=== PATIENT | male | born 1975 | race Caucasian/White ===

== ENCOUNTER 2023-08-06 16:14 | Emergency (ER) | payer SELFPAY ==
[~2023-08-06] VITALS: Ht 170.2 cm; Wt 63.0 kg
[2023-08-06 16:58] VITALS: BP 109/69; PULSE 90; RESP 20; TEMP 98.8; O2SAT 99
[2023-08-06] MEDS ORDERED: IBUPROFEN 600 MG TAB PO ONE (17:40)
[2023-08-06] MEDS ORDERED: HYDROcodone/APAP 5/325 MG 1 TAB TAB PO ONE (17:55)
[2023-08-06] MEDS ORDERED: cefTRIAXone 1,000 MG in LIDOCAINE MPF 1% 2.1 ML IM ONE (17:55)
[2023-08-06] MEDS ORDERED: ACET-8905 PO (18:20)
[2023-08-06] MEDS ORDERED: SULF-59 PO (18:20)
[2023-08-06] MEDS ORDERED: IBUP-2213 PO (18:20)
[2023-08-06] MEDS ORDERED: CEPH500C16 PO (18:20)
[2023-08-06] MEDS ORDERED: cefTRIAXone 1,000 MG VIAL ONE (18:35)
[2023-08-06] MEDS ORDERED: LIDOCAINE MPF 1% 5 ML ONE (18:36)
== END 2023-08-06 18:58 | disposition home or self-care (01) ==
LOC: MED 16:14
DX: L03.317 Cellulitis of buttock (principal); Z79.899 Other long term (current) drug therapy; Z79.1 Long term (current) use of non-steroidal anti-inflammatories (NSAID); Z79.2 Long term (current) use of antibiotics
CPT/HCPCS: 96372; 99284; J0696; J2001

== ENCOUNTER 2023-08-09 19:36 | Emergency (ER) | payer MEDICAID ==
[~2023-08-09] VITALS: Ht 170.2 cm; Wt 61.2 kg
[~2023-08-09 19:36] MED LIST: CEPH500C16 PO; IBUP-2213 PO; SULF-59 PO
[2023-08-09 19:44] VITALS: BP 119/71; PULSE 96; RESP 16; TEMP 98.3; O2SAT 100
== END 2023-08-10 00:20 | disposition left against medical advice (07) ==
LOC: MED 19:36
DX: L02.31 Cutaneous abscess of buttock (principal); Z53.21 Procedure and treatment not carried out due to patient leaving prior to being seen by health care provider
CPT/HCPCS: 99281

== ENCOUNTER 2023-08-10 09:37 | Emergency (ER) | payer MEDICAID ==
[~2023-08-10] VITALS: Ht 165.1 cm; Wt 59.0 kg
[2023-08-10 10:09] VITALS: BP 111/67; PULSE 89; RESP 18; TEMP 97; O2SAT 98
[2023-08-10 11:02] VITALS: BP 111/67; PULSE 89; RESP 18; TEMP 97; O2SAT 98
== END 2023-08-10 11:04 | disposition home or self-care (01) ==
LOC: MED 09:37
DX: L02.31 Cutaneous abscess of buttock (principal); Z79.899 Other long term (current) drug therapy
CPT/HCPCS: 99282

== ENCOUNTER 2023-12-03 23:45 | Emergency (ER) | payer SELFPAY ==
[~2023-12-03] VITALS: Ht 170.2 cm; Wt 62.6 kg
[2023-12-04 00:28] VITALS: BP 131/72; PULSE 88; RESP 16; TEMP 98.2; O2SAT 97
[2023-12-04] MEDS ORDERED: ACET-10509 PO (01:22)
[2023-12-04] MEDS ORDERED: CEPH-588 PO (01:22)
[2023-12-04] MEDS ORDERED: cefTRIAXone 1,000 MG VIAL ONE (01:22)
[2023-12-04] MEDS ORDERED: LIDOCAINE MPF 1% 5 ML ONE (01:22)
[2023-12-04] MEDS ORDERED: SULF-59 PO (01:22)
[2023-12-04] MEDS: cefTRIAXone 1,000 MG in LIDOCAINE MPF 1% 2.1 ML IM ONE (01:25)
[2023-12-04 01:30] VITALS: BP 131/72; PULSE 88; RESP 16; TEMP 98.2; O2SAT 97
== END 2023-12-04 01:30 | disposition home or self-care (01) ==
LOC: MED 23:45
DX: L03.115 Cellulitis of right lower limb (principal); Z79.899 Other long term (current) drug therapy
CPT/HCPCS: 96372; 99283; J0696; J2001

== ENCOUNTER 2023-12-04 19:16 | Emergency (ER) | payer SELFPAY ==
[~2023-12-04] VITALS: Ht 170.2 cm; Wt 67.1 kg
[~2023-12-04 19:16] MED LIST changes: +ACET-10509 PO; +CEPH-588 PO
[2023-12-04 19:55] VITALS: BP 104/70; PULSE 88; RESP 18; TEMP 98.9; O2SAT 99
== END 2023-12-04 22:44 | disposition left against medical advice (07) ==
LOC: MED 19:16
DX: L03.115 Cellulitis of right lower limb (principal); Z53.21 Procedure and treatment not carried out due to patient leaving prior to being seen by health care provider
CPT/HCPCS: 99281

== ENCOUNTER 2024-06-28 11:33 | Emergency (ER) | payer MEDICAID ==
[~2024-06-28] VITALS: Ht 170.2 cm; Wt 59.0 kg
[~2024-06-28 11:33] MED LIST changes: -ACET-10509 PO; +ACET500T99 PO
[2024-06-28 11:39] VITALS: BP 109/85; PULSE 91; RESP 16; TEMP 97.2; O2SAT 99
[2024-06-28 11:55] VITALS: O2SAT 99
[2024-06-28 13:13] LABS: BASOPHILS % (AUTO) 0.4 % (0.0-2.0); EOSINOPHILS # (AUTO) 0.3 K/uL (0-0.4); EOSINOPHILS % (AUTO) 3.2 % (0.0-4.0); HEMOGLOBIN 13.4 g/dL (12.0-18.0); LYMPHOCYTES # (AUTO) 3.1 K/uL (2.0-11.5); LYMPHOCYTES % (AUTO) 33.9 % (20.5-51.1); MEAN CORPUSCULAR HEMOGLOBIN 29 pg (27-31); MEAN CORPUSCULAR HGB CONC 33 g/dL (33-37); MEAN CORPUSCULAR VOLUME 85.8 fL (80-94); MONOCYTES # (AUTO) 0.6 K/uL (0.8-1.0); MONOCYTES % (AUTO) 6.3 % (1.7-9.3); NEUTROPHILS # (AUTO) 5.1 K/uL (1.8-7.7); NEUTROPHILS % (AUTO) 56.2 % (42.2-75.2); PLATELET COUNT (AUTO) 320 K/uL (140-450); RED BLOOD CELL COUNT(AUTO) 4.66 MIL/uL (4.20-6.10); RED CELL DISTRIBUTION WIDTH 15.7 % (11.6-13.7); WHITE BLOOD COUNT (AUTO) 9.2 K/uL (4.8-10.8)
[2024-06-28 13:26] LABS: APPEARANCE,URINE CLEAR (CLEAR); BILIRUBIN,URINE NEGATIVE (NEGATIVE); BLOOD, URINE NEGATIVE (NEGATIVE); COLOR,URINE YELLOW (YELLOW); LEUKOCYTE ESTERASE ,URINE NEGATIVE (NEGATIVE); NITRITE, URINE NEGATIVE (NEGATIVE); PROTEIN,URINE NEGATIVE (NEGATIVE); UGLUCOSE NEGATIVE (NEGATIVE); UROBILINOGEN,URINE 0.2 EU/dL (0.2 - 1)
[2024-06-28 13:28] LABS: ALBUMIN 2.9 g/dL (3.4-5.0); BILIRUBIN,DIRECT 0.1 mg/dL (0.0-0.3); TOTAL BILIRUBIN 0.2 mg/dL (0.0-1.0); TOTAL PROTEIN, SERUM 10.3 g/dL (6.4-8.2)
[2024-06-28 13:41] LABS: ANION GAP 11.4 (8-16); CALCIUM 8.5 mg/dL (8.5-10.1); CARBON DIOXIDE 27.6 mmol/L (21-32); CREATININE 0.9 mg/dL (0.6-1.3)
[2024-06-28 14:35] VITALS: O2SAT 99
[2024-06-28 17:01] VITALS: BP 117/78; PULSE 88; RESP 18; TEMP 97.2; O2SAT 99
[2024-06-28] MEDS ORDERED: DOXY-690 PO (17:02)
[2024-06-28] MEDS ORDERED: cefTRIAXone 500 MG VIAL ONE (17:14)
[2024-06-28] MEDS ORDERED: WATER STERILE 10 ML MC ONE (17:15)
[2024-06-28] MEDS ORDERED: LIDOCAINE MPF 1% 5 ML ONE (17:25)
[2024-06-28] MEDS: cefTRIAXone 500 MG in LIDOCAINE MPF 1% 1 ML IM ONE (17:29)
== END 2024-06-28 17:38 | disposition home or self-care (01) ==
LOC: MED 11:33
DX: K62.89 Other specified diseases of anus and rectum (principal); F15.90 Other stimulant use, unspecified, uncomplicated; Z79.899 Other long term (current) drug therapy
CPT/HCPCS: 36415; 74177; 80048; 80076; 81003; 83690; 85025; 96372; 99285; J0696; J2003; Q9967